=== PATIENT | male | born 1975 | race Two or more races ===

== ENCOUNTER 2024-12-21 00:08 | Emergency (ER) | payer OTHER ==
[~2024-12-21] VITALS: Ht 185.4 cm; Wt 116.2 kg
[2024-12-21 00:50] VITALS: BP 133/94; PULSE 88; RESP 16; TEMP 97.7; O2SAT 95
--- NOTE | 2024-12-21 01:07 | ED.PDOC ---
Eye-HPI HPI Comments PT PRESENTED TO ED FOR POSSIBLE "COTTON SWAB TIP" LODGED IN LEFT EAR X2 HOURS A GO. REPORTS MUFFLED HEARING. Chief Complaint: Foreign Body Time Seen by MD: 00:38 Reviewed Notes: Nurses Notes, Allergies Allergies: Coded Allergies: No Known Drug Allergy (Verified Allergy, Unknown, 12/21/24) Home Meds Active Scripts [id number] (Otic) (Cortisporin Otic Susp) [address], 3 DROP LEFT EAR TID for 7 Days, #10 ML Prov:SIMONA MEDEROS [employer] 12/21/24 Information Source: Patient Mode of Arrival: Ambulatory Past Medical History PAST MEDICAL HISTORY: Denies Surgical History: Denies all surgeries Family History Family History: Reviewed,noncontributory to illness Social History Smoker: Non-Smoker Alcohol: Denies ETOH Use Drugs: Denies Drug Use Constitutional: denies: chills, diaphoresis, fatigue, fever, malaise, sweats, weakness, others EENTM: reports: ear pain; denies: blurred vision, double vision, ear bleeding, ear discharge, ear drainage, ear ringing, eye pain, eye redness, hearing loss, mouth pain, mouth swelling, nasal discharge, nose bleeding, nose congestion, nose pain, photophobia, tearing, throat pain, throat swelling, voice changes, others Respiratory: denies: cough, hemoptysis, orthopnea, SOB at rest, shortness of breath, SOB with excertion, stridor, wheezing, others Cardiovascular: denies: chest pain, dizzy spells, diaphoresis, Dyspnea on exertion, edema, irregular heart beat, left arm pain, lightheadedness, palpitations, PND, syncope, others Gastrointestinal: denies: abdomen distended, abdominal pain, blood streaked bowels, constipated, diarrhea, dysphagia, difficulty swallowing, hematemesis, melena, nausea, poor appetite, poor fluid intake, rectal bleeding, rectal pain, vomiting, others Genitourinary: denies: burning, dysuria, flank pain, frequency, hematuria, incontinence, penile discharge, penile sore, pain, testicle pain, testicle swelling, urgency, others Neurological: denies: dizziness, fainting, headache, left sided numbness, left sided weakness, numbness, paresthesia, pre-existing deficit, right sided numbness, right sided weakness, seizure, speech problems, tingling, tremors, weakness, others Musculoskeletal: denies: back pain, gout, joint pain, joint swelling, muscle pain, muscle stiffness, neck pain, others Integumetry: denies: bruises, change in color, change in hair/nails, dryness, laceration, lesions, lumps, rash, wounds, others Allergic/Immunocompromised: denies: Difficulty Healing, Frequent Infections, Hives, Itching, others Hematologic/Lymphatic: denies: anemia, blood clots, easy bleeding, easy bruising, swollen glands, others Endocrine: denies: excessive hunger, excessive sweating, excessive thirst, excessive urination, flushing, intolerance to cold, intolerance to heat, unexplained weight gain, unexplained weight loss, others Psychiatric: denies: anxiety, bipolar disorder, depression, hopeless, panic disorder, schizophrenia, sleepless, suicidal, others Physical Exam General Appearance: No Apparent Distress, Normal HEENT: Pharynx Normal, TM Abnormal (L) (NOTED TIP OF Q-TIP IMPACTED IN RIGHT EAR CANAL. AFTER REMOVAL TM WITHIN NORMAL LIMITS CANAL WITH NOTED EDEMA TRACE BLEEDING CONTROLLED AND ERYTHEMA), TM Abnormal (R) (WITHIN NORMAL LIMITS) Neck: Full Range of Motion, Non-Tender Respiratory: Lungs Clear, No Respiratory Distress, Normal Breath Sounds Cardiovascular: No Murmur, Normal Peripheral Pulses, Regular Rate/Rhythm Breast Exam: Deferred Gastrointestinal: Non Tender, Soft Genitalia: Deferred Pelvic: Deferred Rectal: Deferred Extremities: Normal range of motion, No pedal edema Musculoskeletal : Apperance: Normal Neurologic: Alert, No Motor Deficits, Normal Affect, Normal Mood, No Sensory Deficits Cerebellar Function: Normal Reflexes: Normal Skin: Dry, Normal Color, Warm Lymphatic: No Adenopathy Was a procedure done? Was a procedure done?: Yes Sedation Sedation?: No Informed consent obtained: Yes Foreign Body Removal Foreign body in: Ear Anesthetic: Nothing Prep: Irrigation Procedure: Removed Informed consent obtained: Yes Risks/benefits/alt described: Yes Notes REMOVAL ON COTTON SWAB TIP PATIENT TOLERATED WELL WITH MINIMAL BLOOD LOSS EENT DIFF Eye: N/A Ear: Cerumen Impaction, Foreign Body, Otitis Externa, Barotrauma, Perforation X-Ray, Labs, Meds, VS Vital Signs Date Time Temp Pulse Resp B/P (MAP) Pulse Ox O2 Delivery O2 Flow Rate FiO2 12/21/24 00:50 Room Air 12/21/24 00:50 97.7 88 16 133/94 (107) 95 97.7 12/21/24 00:50 97.7 88 16 133/94 (107) 95 97.7 X-Ray, Labs, Meds, VS Comment SEE PROCEDURE NOTE Script prophylactic trial of antibiotic eardrops. Advised patient to take medications as prescribed side effects discussed. Advised not to use Q-tips. Follow up with your PCP in 2-3 days as necessary. ER return precautions given patient indicates understanding and agrees with discharge plan of care. Time of 1ST Reevaluation: 00:30 Reevaluation 1ST: Unchanged Time of 2ND Reevaluation: 01:35 Reevaluation 2ND: Improved Patient Education/Counseling: Diagnosis, Treatment, Prognosis, Need For Follow Up Family Education/Counseling: No Family Present Departure 1 Departure Time of Disposition: 01:35 Impression: Primary Impression: Ear foreign body Qualified Codes: T16.2XXA - Foreign body in left ear, initial encounter Additional Impression: Otitis externa of left ear Qualified Codes: H60.502 - Unspecified acute noninfective otitis externa, left ear Disposition: 01 HOME / SELF CARE / HOMELESS Condition: Stable e-Prescriptions [id number] (Otic) (Cortisporin Otic Susp) [address] 3 DROP LEFT EAR TID for 7 Days, #10 ML Prov: SIMONA MEDEROS 12/21/24 Discharged With: Self Critical Care Note Critical Care Time?: No Stability Stability form required: SIMONA Paula December 21, 2024 01:07
[2024-12-21] MEDS ORDERED: COROSUS LEFT EAR (01:36)
== END 2024-12-21 01:46 | disposition home or self-care (01) ==
LOC: ER 00:08
DX: T16.2XXA Foreign body in left ear, initial encounter (principal); H60.92 Unspecified otitis externa, left ear; W44.9XXA Unspecified foreign body entering into or through a natural orifice, initial encounter; Y93.89 Activity, other specified; Y92.89 Other specified places as the place of occurrence of the external cause; Y99.8 Other external cause status